=== PATIENT | male | born 1965 | race Caucasian/White ===

== ENCOUNTER 2016-12-30 15:46 | Emergency (ER) | payer MEDICAID, MEDICARE ==
[~2016-12-30] VITALS: Ht 182.9 cm; Wt 90.7 kg
[~2016-12-30 15:46] MED LIST: LISI-275 OR; OXYM0.0594
[2016-12-30 16:50] LABS: Basophils # (auto) 0 uL; Basophils % (auto) 0.2 % (0.0-2.0); CONDITION Y; DEFINITIVE SEE PRINTOUT; Eosinophils # (auto) 0 uL; Eosinophils % (auto) 0.4 % (0.0-7.0); Hematocrit 23.8 % (41.0-53.0); Hemoglobin 7.8 g/dL (13.5-17.5); Lymphocytes # (auto) 0.7 uL; Lymphocytes % (auto) 9.5 % (10.0-50.0); Mean Corpuscular Hemoglobin 38.2 pg (28.0-32.0); Mean Corpuscular Hgb Conc. 32.9 g/dL (32.0-36.0); Mean Platelet Volume 7.8 fL (7.4-10.4); Monocytes # (auto) 0.6 uL; Monocytes % (auto) 8.8 % (0.0-12.0); Neutrophils # (auto) 5.7 uL; Neutrophils % (auto) 81.1 % (37.0-80.0); Platelet Count (auto) 159 10^3/uL (140-450); Red Cell Distribution Width 18.9 % (11.6-16.0)
[2016-12-30 17:02] LABS: Albumin 2.8 g/dL (3.4-5.0); Anion Gap 12 (5-15); Calcium 8.3 mg/dL (8.5-10.1); Carbon Dioxide 23 mmol/L (21-32); Chloride 101 mmol/L (98-107); Glucose 134 mg/dL (74-106); Magnesium 1.7 mg/dL (1.6-2.6); Potassium 3.2 mmol/L (3.5-5.1); Sodium 136 mmol/L (136-145)
[2016-12-30 17:05] LABS: INR 1.1 (0.9-1.15); Partial Thromboplastin Time 30.1 sec (22.64-33.71)
[2016-12-30 17:06] LABS: Alkaline Phosphatase 158 U/L (45-117); Aspartate Aminotransferase 35 U/L (15-37); BUN/Creatinine Ratio 24.7; Blood Urea Nitrogen 24 mg/dL (7-18); GFR African American 104 mL/min; GFR Non-African American 86 mL/min; Total Protein 6.7 g/dL (6.4-8.2)
[2016-12-30 17:10] LABS: Macrocytosis Marked
[2016-12-30 17:11] LABS: Polychromasia Slight; Stomatocytes Moderate
[2016-12-30 17:12] LABS: Giant Platelets Few; Platelet Estimate Adequate
[2016-12-30] MEDS ORDERED: SODIUM CHLORIDE 0.9% 1,000 ML IV ONE (17:15)
[2016-12-30] MEDS ORDERED: POTASSIUM CHL 10% (20 MEQ/15ML) ORAL SOLN PO ONE (18:30)
[2016-12-30 19:00] VITALS: BP 114/75
== END 2016-12-30 19:11 | disposition home or self-care (01) ==
LOC: ER 15:50
DX: D68.0 Von Willebrand disease (principal); D64.9 Anemia, unspecified; E87.6 Hypokalemia; E44.1 Mild protein-calorie malnutrition; Z68.27 Body mass index [BMI] 27.0-27.9, adult; R04.0 Epistaxis; K21.9 Gastro-esophageal reflux disease without esophagitis; I10 Essential (primary) hypertension; Z79.899 Other long term (current) drug therapy; R42 Dizziness and giddiness
CPT/HCPCS: 36415; 80053; 83735; 84484; 85025; 85610; 85730; 86850; 86900; 86901; 93005; 96360

== ENCOUNTER 2017-01-04 20:36 | Inpatient (IN) | payer MEDICARE ==
[~2017-01-04] VITALS: Ht 182.9 cm; Wt 90.1 kg
[2017-01-04 21:24] LABS: Basophils # (auto) 0 uL; Basophils % (auto) 0.1 % (0.0-2.0); CONDITION Y; DEFINITIVE SEE PRINTOUT; Eosinophils # (auto) 0 uL; Eosinophils % (auto) 0.2 % (0.0-7.0); Hematocrit 12.4 % (41.0-53.0); Lymphocytes # (auto) 0.6 uL; Lymphocytes % (auto) 7.9 % (10.0-50.0); Mean Corpuscular Hemoglobin 37.3 pg (28.0-32.0); Mean Corpuscular Hgb Conc. 34.7 g/dL (32.0-36.0); Mean Corpuscular Volume 107.4 fL (80.0-100.0); Mean Platelet Volume 8.1 fL (7.4-10.4); Monocytes # (auto) 1.1 uL; Monocytes % (auto) 14.5 % (0.0-12.0); Neutrophils # (auto) 5.7 uL; Neutrophils % (auto) 77.3 % (37.0-80.0); Platelet Count (auto) 243 10^3/uL (140-450); Red Cell Distribution Width 18.7 % (11.6-16.0); White Blood Cell 7.4 10^3/uL (4.4-10.8)
[2017-01-04 21:27] LABS: Albumin 2.2 g/dL (3.4-5.0); BUN/Creatinine Ratio 32.8; Bilirubin, Total 0.5 mg/dL (0.2-1.0); Calcium 7.4 mg/dL (8.5-10.1); Potassium 3.7 mmol/L (3.5-5.1); Total Protein 5.1 g/dL (6.4-8.2)
[2017-01-04 21:29] LABS: Hemoglobin 4.3 g/dL (13.5-17.5)
[2017-01-04] MEDS ORDERED: SODIUM CHLORIDE 0.9% 1,000 ML IV ONE (21:30)
[2017-01-04 22:13] LABS: Giant Platelets Few; Platelet Estimate Adequate; Polychromasia Moderate; Tear Drop Cells FEW
[2017-01-04 22:14] LABS: Macrocytosis Moderate; Stomatocytes Few
[2017-01-04 23:00] VITALS: BP 109/64
[2017-01-04 23:17] VITALS: BP 112/54
[2017-01-04 23:47] VITALS: BP 105/56
[2017-01-05] VITALS (26 sets, daily range): BP systolic 104–135; BP diastolic 52–77
[2017-01-05 01:52] LABS: Allen Test Yes; Base Excess 0.2 mmol/L (-2.0-2.0); Blood COHb 0.7 % (0.5-1.5); Blood MetHb 0.3 % (0.0-1.5); HCO3 22.6 mmol/L (22-26.0); MODE ROOM AIR; PCO2 27.3 mmHg (35.0-45.0); PCO2(T) 27.3 mmHg (35.0-45.0); PO2 100.5 mmHg (80.0-100.0); PO2(T) 100.5 mmHg (80.0-100.0); Sample Type Arterial; pH 7.535 (7.350-7.450)
[2017-01-05] MEDS ORDERED: ACETAMINOPHEN 325 MG TAB PO ONE (02:15)
[2017-01-05] MEDS ORDERED: cefTRIAXone 1GM/50ML D5W 50 ML IV ONE (05:00)
[2017-01-05] MEDS ORDERED: ONDANSETRON HCL 4 MG/2 ML VIAL IV PRN (06:00)
[2017-01-05] MEDS ORDERED: NITROGLYCERIN 0.4 MG SL TAB SL PRN (06:00)
[2017-01-05] MEDS ORDERED: MORPHINE SULFATE 4 MG/ML SYRG IV PRN (06:00)
[2017-01-05] MEDS: SODIUM CHLORIDE 0.9% 1,000 ML IV SCH ×2 (06:26→20:34)
[2017-01-05] MEDS: PANTOPRAZOLE SODIUM 40 MG/10 ML VIAL IV SCH ×3 (06:27→21:47)
[2017-01-05] MEDS ORDERED: cefTRIAXone 1GM/50ML D5W 50 ML IV SCH (09:00)
[2017-01-05] MEDS ORDERED: LISINOPRIL 20 MG TAB PO SCH (10:00)
[2017-01-05] MEDS: NIFEdipine ER 30 MG TAB PO SCH (10:00)
[2017-01-05] MEDS ORDERED: OME20T PO (10:28)
[2017-01-05] MEDS ORDERED: FLUMAZENIL 0.1 MG/ML INJ 10ML MDV IV ONE (11:16)
[2017-01-05] MEDS ORDERED: LIDOCAINE VISCOUS 2% 15ML UD ONE (11:16)
[2017-01-05] MEDS ORDERED: diphenhdrAMINE HCL 50 MG/1 ML VL ONE (11:16)
[2017-01-05] MEDS ORDERED: NALOXONE HCL 0.4 MG/ML VIAL ONE (11:16)
[2017-01-05] MEDS ORDERED: SODIUM CHLORIDE LOCK 10 ML ONE (11:16)
[2017-01-05 11:35] LABS: Hematocrit 20.1 % (41.0-53.0)
[2017-01-05 11:37] LABS: Hemoglobin 6.7 g/dL (13.5-17.5)
[2017-01-05 11:51] LABS: INR 1.16 (0.9-1.15)
[2017-01-05 11:58] LABS: Prothrombin Time 12.7 sec (9.37-12.3)
[2017-01-05] MEDS: fentaNYL CITRATE 100 MCG/2 ML VL ONE ×2 (13:08→13:11)
[2017-01-05] MEDS: MIDAZOLAM HCL 5 MG/ML-1ML VIAL ONE ×2 (13:08→13:11)
[2017-01-05 19:20] LABS: Hematocrit 23.5 % (41.0-53.0); Hemoglobin 7.9 g/dL (13.5-17.5)
[2017-01-06 05:00] VITALS: BP 138/85
[2017-01-06 05:19] LABS: Basophils # (auto) 0 uL; Basophils % (auto) 0.2 % (0.0-2.0); CONDITION Y; DEFINITIVE SEE PRINTOUT; Eosinophils # (auto) 0 uL; Eosinophils % (auto) 0.3 % (0.0-7.0); Hematocrit 25.9 % (41.0-53.0); Hemoglobin 8.6 g/dL (13.5-17.5); Lymphocytes # (auto) 1.2 uL; Lymphocytes % (auto) 13.1 % (10.0-50.0); Mean Corpuscular Volume 96.8 fL (80.0-100.0); Mean Platelet Volume 8.3 fL (7.4-10.4); Monocytes % (auto) 10.9 % (0.0-12.0); Neutrophils # (auto) 6.6 uL; Neutrophils % (auto) 75.5 % (37.0-80.0); Platelet Count (auto) 275 10^3/uL (140-450); White Blood Cell 8.8 10^3/uL (4.4-10.8)
[2017-01-06 05:21] LABS: Red Cell Distribution Width 21.2 % (11.6-16.0)
[2017-01-06 05:37] LABS: Albumin 2.5 g/dL (3.4-5.0); BUN/Creatinine Ratio 21.2; Bilirubin, Total 1.1 mg/dL (0.2-1.0); Calcium 7.7 mg/dL (8.5-10.1); Potassium 3.4 mmol/L (3.5-5.1); Total Protein 5.7 g/dL (6.4-8.2)
[2017-01-06 06:18] LABS: Anisocytosis Slight; Ovalocytes FEW; Platelet Estimate Adequate; Polychromasia Slight
[2017-01-06 09:00] VITALS: BP 126/70
[2017-01-06] MEDS ORDERED: LISINOPRIL 20 MG TAB PO SCH (10:00)
[2017-01-06] MEDS: NIFEdipine ER 30 MG TAB PO SCH (12:05)
[2017-01-06] MEDS: PANTOPRAZOLE SODIUM 40 MG/10 ML VIAL IV SCH (12:07)
[2017-01-06] MEDS: SODIUM CHLORIDE 0.9% 1,000 ML IV SCH (12:07)
[2017-01-06 13:00] VITALS: BP 128/70
[2017-01-06] MEDS ORDERED: PANT40TA2 PO (16:27)
[2017-01-06 17:00] VITALS: BP 92/58
[2017-01-06 17:29] VITALS: BP 126/70
== END 2017-01-06 18:25 | disposition home or self-care (01) | DRG 377 ==
LOC: ER 20:41 → TELE 20:42 → TELE-WESTW 01-05 08:14 → TELE-E-ADS 01-05 08:33 → TELE-WESTW 01-05 11:00
PROVIDERS: ADMIT Nurse Practitioner; ATTEND Internal Medicine
PROC: 30233N1 Transfusion of Nonautologous Red Blood Cells into Peripheral Vein, Percutaneous Approach (ICD-10-PCS; 2017-01-04)
PROC: 30233N1 Transfusion of Nonautologous Red Blood Cells into Peripheral Vein, Percutaneous Approach (ICD-10-PCS; 2017-01-05)
PROC: 0W3P8ZZ Control Bleeding in Gastrointestinal Tract, Via Natural or Artificial Opening Endoscopic (ICD-10-PCS; principal; 2017-01-05 13:04)
DX: K31.82 Dieulafoy lesion (hemorrhagic) of stomach and duodenum (principal); E43 Unspecified severe protein-calorie malnutrition; D68.0 Von Willebrand disease; D50.0 Iron deficiency anemia secondary to blood loss (chronic); D75.89 Other specified diseases of blood and blood-forming organs; I10 Essential (primary) hypertension; K21.9 Gastro-esophageal reflux disease without esophagitis; K44.9 Diaphragmatic hernia without obstruction or gangrene; R56.9 Unspecified convulsions; Q27.33 Arteriovenous malformation of digestive system vessel; Z80.0 Family history of malignant neoplasm of digestive organs
CPT/HCPCS: 36415; 36430; 36600; 70450; 80053; 80061; 82270; 82805; 82962; 83036; 83605; 83735; 84484; 85014; 85018; 85025; 85610; 86850; 86900; 86901; 86920; 87040; 93005; 96361; 96365; C9113; J0696; J2250

== ENCOUNTER 2017-09-16 15:09 | Inpatient (IN) | payer MEDICARE ==
[~2017-09-16] VITALS: Ht 182.9 cm; Wt 83.9 kg
[~2017-09-16 15:09] MED LIST changes: +PANT40TA2 PO
[2017-09-16 16:25] LABS: Basophils # (auto) 0 uL; Basophils % (auto) 0.4 % (0.0-2.0); Eosinophils # (auto) 0 uL; Eosinophils % (auto) 0.1 % (0.0-7.0); Lymphocytes % (auto) 18.4 % (10.0-50.0); Mean Corpuscular Hemoglobin 19.7 pg (28.0-32.0); Mean Corpuscular Hgb Conc. 25.4 g/dL (32.0-36.0); Mean Corpuscular Volume 77.5 fL (80.0-100.0); Monocytes # (auto) 0.8 uL; Neutrophils # (auto) 3.5 uL; Neutrophils % (auto) 66.1 % (37.0-80.0); Nucleated Red Blood Cells % 0.4 %; Red Blood Cells 2.96 10^6/uL (4.5-5.90); Red Cell Distribution Width 21.2 % (11.8-14.3); White Blood Cell 5.3 10^3/uL (4.4-10.8)
[2017-09-16 16:31] LABS: Platelet Count (auto) 94 10^3/uL (140-450)
[2017-09-16 16:32] LABS: Hemoglobin 5.8 g/dL (13.5-17.5)
[2017-09-16] MEDS ORDERED: PANTOPRAZOLE 40 MG/10 ML VIAL IV ONE (16:45)
[2017-09-16] MEDS ORDERED: SODIUM CHLORIDE 0.9% 1,000 ML IVB ONE (17:05)
[2017-09-16 17:11] LABS: INR 1.11 (0.9-1.15); Partial Thromboplastin Time 35.8 sec (22.64-33.71); Prothrombin Time 12.1 sec (9.37-12.3)
[2017-09-16 17:12] LABS: Albumin 3.1 g/dL (3.4-5.0); BUN/Creatinine Ratio 33.8; Bilirubin, Total 0.5 mg/dL (0.2-1.0); Calcium 8.2 mg/dL (8.5-10.1); Total Protein 7.1 g/dL (6.4-8.2)
[2017-09-16] MEDS ORDERED: ACETAMINOPHEN 500 MG TAB PO PRN (21:00)
[2017-09-16] MEDS ORDERED: ONDANSETRON HCL 4 MG/2 ML VIAL IV PRN (21:00)
[2017-09-16] MEDS: PANTOPRAZOLE 40 MG/10 ML VIAL IV SCH (21:38)
[2017-09-16] MEDS: HYDROcodone-ACET 5/325MG TAB PO PRN (21:38)
[2017-09-16] MEDS ORDERED: metroNIDAZOLE 500MG/100ML 100 ML IV ONE (21:45)
[2017-09-16] MEDS ORDERED: chlordiazePOXIDE HCL 25 MG CAP PO PRN (21:45)
[2017-09-16] MEDS ORDERED: cefTRIAXone 1GM/10ml IVPUSH 10 ML IV ONE (21:45)
[2017-09-16] MEDS ORDERED: THIAMINE HCL 100 MG/ML 2ML VIAL IM ONE (21:45)
[2017-09-16] MEDS ORDERED: LORazepam 2MG/ML-1ML VIAL IV PRN (21:45)
[2017-09-16 22:10] VITALS: BP 147/81
[2017-09-16 22:25] VITALS: BP 149/83
[2017-09-16 22:40] VITALS: BP 146/79
[2017-09-16] MEDS ORDERED: THIAMINE HCL 100 MG TAB ONE (22:50)
[2017-09-16 22:55] VITALS: BP 138/84
[2017-09-16] MEDS: metroNIDAZOLE 500MG/100ML 100 ML IV SCH (22:59)
[2017-09-16 23:10] VITALS: BP 119/83
[2017-09-16 23:45] VITALS: BP 128/73
[2017-09-17] VITALS (15 sets, daily range): BP systolic 119–154; BP diastolic 67–91
[2017-09-17] MEDS: metroNIDAZOLE 500MG/100ML 100 ML IV SCH (06:44)
[2017-09-17] MEDS: HYDROcodone-ACET 5/325MG TAB PO PRN (06:51)
[2017-09-17] MEDS ORDERED: NITROGLYCERIN 0.4 MG SL TAB SL PRN (07:30)
[2017-09-17] MEDS ORDERED: MORPHINE SULFATE 4 MG/ML SYR/VIAL IV PRN (07:30)
[2017-09-17 08:21] LABS: Basophils # (auto) 0 uL; Basophils % (auto) 0.4 % (0.0-2.0); Eosinophils # (auto) 0 uL; Eosinophils % (auto) 0.3 % (0.0-7.0); Hemoglobin 8.5 g/dL (13.5-17.5); Lymphocytes # (auto) 0.7 uL; Monocytes # (auto) 0.4 uL; Neutrophils # (auto) 1.7 uL; White Blood Cell 2.8 10^3/uL (4.4-10.8)
[2017-09-17 08:23] LABS: Hematocrit 27.3 % (41.0-53.0); Lymphocytes % (auto) 24.2 % (10.0-50.0); Mean Corpuscular Hemoglobin 24.2 pg (28.0-32.0); Mean Corpuscular Hgb Conc. 31.1 g/dL (32.0-36.0); Mean Corpuscular Volume 77.8 fL (80.0-100.0); Monocytes % (auto) 14.8 % (0.0-12.0); Neutrophils % (auto) 60.3 % (37.0-80.0); Nucleated Red Blood Cells % 0.2 %; Platelet Count (auto) 54 10^3/uL (140-450); Red Blood Cells 3.51 10^6/uL (4.5-5.90)
[2017-09-17 08:29] LABS: Red Cell Distribution Width 23.8 % (11.8-14.3)
[2017-09-17 08:35] LABS: BUN/Creatinine Ratio 29.7; Calcium 7.7 mg/dL (8.5-10.1); Potassium 3.1 mmol/L (3.5-5.1)
[2017-09-17] MEDS ORDERED: MULTIPLE VITAMIN TAB PO SCH (10:00)
[2017-09-17] MEDS ORDERED: LISINOPRIL 5 MG TAB PO SCH (10:00)
[2017-09-17] MEDS ORDERED: FOLIC ACID 1 MG TAB PO SCH (10:00)
[2017-09-17] MEDS ORDERED: THIAMINE HCL 100 MG/ML 2ML VIAL IV SCH (10:00)
[2017-09-17] MEDS: PANTOPRAZOLE 40 MG/10 ML VIAL IV SCH (10:17)
[2017-09-17] MEDS ORDERED: THIAMINE HCL 100 MG TAB ONE (12:01)
[2017-09-17] MEDS ORDERED: cefTRIAXone 1GM/10ml IVPUSH 10 ML IV SCH (22:00)
[2017-09-18] MEDS ORDERED: THIAMINE HCL 100 MG TAB PO SCH (10:00)
== END 2017-09-17 13:47 | disposition left against medical advice (07) | DRG 378 ==
LOC: ER 15:09 → OVERFLOW 15:10
PROVIDERS: ADMIT Nurse Practitioner Family; ATTEND Family Medicine
PROC: 30233N1 Transfusion of Nonautologous Red Blood Cells into Peripheral Vein, Percutaneous Approach (ICD-10-PCS; principal; 2017-09-17)
DX: K92.2 Gastrointestinal hemorrhage, unspecified (principal); D68.0 Von Willebrand disease; K74.60 Unspecified cirrhosis of liver; K52.9 Noninfective gastroenteritis and colitis, unspecified; D50.0 Iron deficiency anemia secondary to blood loss (chronic); I10 Essential (primary) hypertension; K21.9 Gastro-esophageal reflux disease without esophagitis; K44.9 Diaphragmatic hernia without obstruction or gangrene; M51.27 Other intervertebral disc displacement, lumbosacral region; R04.0 Epistaxis; E87.6 Hypokalemia; M54.9 Dorsalgia, unspecified; G89.29 Other chronic pain; Z79.899 Other long term (current) drug therapy; Z80.9 Family history of malignant neoplasm, unspecified
CPT/HCPCS: 36415; 36430; 71045; 74176; 80048; 80053; 83735; 85025; 85610; 85730; 86850; 86900; 86901; 86920; 93005; 96361; 96374; 96375; 99291; C9113; G0378; J3490

== ENCOUNTER 2019-12-11 12:12 | Inpatient (IN) | payer MEDICARE ==
[~2019-12-11] VITALS: Ht 182.9 cm; Wt 88.0 kg
[2019-12-11] VITALS (12 sets, daily range): BP systolic 138–155; BP diastolic 78–104
[2019-12-11 13:21] LABS: Basophils # (auto) 0.1 10 ^3/uL (0-0.2); Eosinophils # (auto) 0 10 ^3/uL (0-0.8); Eosinophils % (auto) 0.5 % (0.0-7.0); Hematocrit 22.6 % (41.0-53.0); Mean Corpuscular Hgb Conc. 29.4 g/dL (32.0-36.0); Monocytes # (auto) 0.8 10 ^3/uL (0-1.3); Neutrophils # (auto) 2.9 10 ^3/uL (1.6-8.6); White Blood Cell 4.7 10^3/uL (4.4-10.8)
[2019-12-11 13:22] LABS: Lymphocytes # (auto) 0.8 10 ^3/uL (0.4-5.4); Lymphocytes % (auto) 18.1 % (10.0-50.0); Mean Corpuscular Hemoglobin 22.4 pg (28.0-32.0); Mean Corpuscular Volume 76.1 fL (80.0-100.0); Monocytes % (auto) 17.2 % (0.0-12.0); Neutrophils % (auto) 62.2 % (37.0-80.0); Nucleated Red Blood Cells % 0.3 %; Platelet Count (auto) 323 10^3/uL (140-450); Red Blood Cells 2.97 10^6/uL (4.5-5.90)
[2019-12-11 13:24] LABS: Red Cell Distribution Width 24.4 % (11.8-14.3)
[2019-12-11 13:30] LABS: Hemoglobin 6.6 g/dL (13.5-17.5)
[2019-12-11 13:33] LABS: Albumin 3.2 g/dL (3.4-5.0); BUN/Creatinine Ratio 27.8; Calcium 8.1 mg/dL (8.5-10.1); INR 1.23 (0.9-1.15); Partial Thromboplastin Time 29.6 sec (23.64-32.05); Potassium 3.6 mmol/L (3.5-5.1)
[2019-12-11 13:36] LABS: Bilirubin, Total 0.3 mg/dL (0.2-1.0); Total Protein 6.6 g/dL (6.4-8.2)
[2019-12-11] MEDS ORDERED: NITROGLYCERIN 0.4 MG SL TAB SL PRN ×2 (15:45→16:45)
[2019-12-11] MEDS ORDERED: DESMOPRESSIN INJECTION 20 MCG in SODIUM CHL 0.9% 50 ML IV ONE ×2 (15:45→20:45)
[2019-12-11] MEDS ORDERED: MORPHINE SULF INJ 2 MG/ML SYRINGE 1ML IV PRN ×3 (15:45→16:45)
[2019-12-11] MEDS ORDERED: ONDANSETRON HCL 4 MG/2 ML VIAL IV PRN (16:45)
[2019-12-11] MEDS ORDERED: ALUM & MAG HYDROX-SIMETH LIQ(MAALOX) 30 ML PO PRN (16:45)
[2019-12-11] MEDS ORDERED: DOCUSATE SOD 100 MG CAP PO PRN (16:45)
[2019-12-11] MEDS ORDERED: FUROSEMIDE 40 MG/4 ML VIAL IV ONE (16:45)
[2019-12-11] MEDS ORDERED: LORazepam 0.5 MG TAB PO PRN (16:45)
[2019-12-11] MEDS: HYDROcodone-ACET 5/325MG TAB PO PRN ×2 (18:34→23:20)
--- NOTE | 2019-12-11 19:30 | NUR ---
Opening Shift Note Assumed care of patient, awake and alert x4. Patient denies pain or shortness of breath at this time. No sign/symptoms of distress noted or verbalized at this time. Patient is currently running 2 unit of red blood cells. Instructed on plan of care and encouraged patient to call for assistance, patient verbalized understanding. Bed is locked in lowest position, side rails x2 are up, and call light is within reach.
[2019-12-11] MEDS ORDERED: PHYT100T PO (20:31)
[2019-12-11] MEDS ORDERED: FERR27TA2 PO (20:31)
--- NOTE | 2019-12-11 21:05 | NUR ---
Cryoprecipitate Transfusion Incomplete Prior to beginning transfusion, ludwin RN and Amber VAZQUEZ manually verified/checked that all numbers on cryoprecipitate bag matched those on the patient identification band and blood band. At 20:50 this RN began running cryoprecipitate (total volume: 100ml) at 40mls/hr and stopped the infusion at 21:05 due to the cryoprecipitate reaching the expiration time. Cryoprecipitate transfusion was not completed. Vital signs after stopping the transfusion were the following: BP: 142/92, HR: 92, RR: 18, TEMP: 98.3, and SPO2: 97% on room air. Lungs after stopping the transfusion were clear upon auscultation. Patient denies shortness of breath, itchiness, chills, or back pain at this time. Patient is laying in bed with even and unlabored respirations. No sign/symptoms of distress noted or verbalized at this time. home performance laborer notified. Addendum: 12/12/19 at 0454 by ART ARMAS RN RN Cryoprecipitate bag sent back to blood bank.
--- NOTE | 2019-12-11 21:24 | NUR ---
Spoke with Blood [facility] Re: Cryoprecipitate Order Spoke with Pily from blood bank regarding new cryoprecipitate order. Per Pily order for [facility] and she does not know when product will arrive or become available.
[2019-12-11] MEDS: FUROSEMIDE 20 MG/2 ML VIAL IV SCH (21:53)
[2019-12-11] MEDS: SODIUM CHLORIDE 0.9% 1,000 ML IV SCH (21:59)
--- NOTE | 2019-12-11 22:10 | NUR ---
Hospitalist Paged Re: Sleeping Pill Hospitalist paged regarding sleeping pill. Patient requesting sleeping medication. Awaiting call back.
[2019-12-11] MEDS ORDERED: TEMAZEPAM 15 MG CAP PO ONE (22:30)
--- NOTE | 2019-12-11 23:40 | NUR ---
Spoke with blood bank re: update on cryoprecipitate Spoke with Armond from blood bank regarding update on when cryoprecipitate would be ready. Per Armond [facility] but they have not heard anything from. Per Armond, blood bank will call this RN to notify her when cryoprecipitate is ready.
[2019-12-12] VITALS (9 sets, daily range): BP systolic 134–147; BP diastolic 70–89
[2019-12-12] MEDS ORDERED: hydrALAZINE HCL 20 MG/ML VL IV PRN (00:45)
--- NOTE | 2019-12-12 03:04 | NUR ---
Rounds Patient is laying in bed with even and unlabored respirations. Nasal packing was noted at the bedside. This RN asked patient if he removed the nasal packing himself and patient reported he removed the nasal packing 15 minutes prior to this RN entering room. Patient reported that he deflated the balloon himself and pulled it out. Tip of nasal packing is intact. No nasal bleeding noted at this time.
--- NOTE | 2019-12-12 03:15 | NUR ---
Spoke with Hospitalist Re: FFP Notified VENUS Romero that this RN noticed that Dr. Ramos wrote in his notes that his plan for this patient included patient receiving two units of FFP but Dr. Alcaraz only placed one order for one unit of FFP. This RN asked VENUS Romero if it was okay for this RN to place order for second unit of FFP. No orders received for FFP. Orders received from VENUS Romero for CBC and CMP STAT. Order received and verified. Will carry out order as received. Patient is no longer bleeding from his nose and has received 2 units of RBC and 1 unit of FFP which VENUS Romero was also made aware of.
[2019-12-12 03:58] LABS: Basophils # (auto) 0 10 ^3/uL (0-0.2); Eosinophils # (auto) 0 10 ^3/uL (0-0.8); Hematocrit 24.1 % (41.0-53.0); Hemoglobin 7.5 g/dL (13.5-17.5); Lymphocytes # (auto) 0.7 10 ^3/uL (0.4-5.4); Monocytes # (auto) 0.5 10 ^3/uL (0-1.3)
[2019-12-12 04:01] LABS: Basophils % (auto) 0.8 % (0.0-2.0); Eosinophils % (auto) 0.5 % (0.0-7.0); Lymphocytes % (auto) 18.7 % (10.0-50.0); Mean Corpuscular Hemoglobin 24.8 pg (28.0-32.0); Mean Corpuscular Hgb Conc. 31.3 g/dL (32.0-36.0); Mean Corpuscular Volume 79.1 fL (80.0-100.0); Monocytes % (auto) 12.4 % (0.0-12.0); Neutrophils # (auto) 2.7 10 ^3/uL (1.6-8.6); Neutrophils % (auto) 67.6 % (37.0-80.0); Nucleated Red Blood Cells % 0.2 %; Platelet Count (auto) 205 10^3/uL (140-450); Red Blood Cells 3.04 10^6/uL (4.5-5.90)
[2019-12-12 04:05] LABS: Red Cell Distribution Width 24.4 % (11.8-14.3)
[2019-12-12 04:17] LABS: INR 1.22 (0.9-1.15)
[2019-12-12 04:20] LABS: Albumin 3.1 g/dL (3.4-5.0); Calcium 7.5 mg/dL (8.5-10.1); Magnesium 1.8 mg/dL (1.6-2.6); Potassium 3.2 mmol/L (3.5-5.1)
[2019-12-12 04:23] LABS: BUN/Creatinine Ratio 25.3; Bilirubin, Total 0.8 mg/dL (0.2-1.0); Total Protein 6.3 g/dL (6.4-8.2)
[2019-12-12] MEDS: FUROSEMIDE 20 MG/2 ML VIAL IV SCH ×2 (06:00→17:39)
--- NOTE | 2019-12-12 07:29 | NUR ---
Opening Shift Note Assumed care of patient, awake and alert. No S/S of distress/SOB or pain. Instructed on POC and to call for assist PRN, will continue to monitor for changes Q1hr and PRN. Bed is set in lowest locked position with side rails up x 2 for safety and call light is within reach.
[2019-12-12] MEDS: SODIUM CHLORIDE 0.9% 1,000 ML IV SCH ×4 (07:31→18:10)
--- NOTE | 2019-12-12 07:31 | NUR ---
Closing Shift Note Endorsed patient care to Anika VAZQUEZ. Patient laying in bed with even and unlabored respirations. No sign/symptoms of distress noted at this time. No nose bleed at this time.
[2019-12-12] MEDS: FERROUS SULFATE 325 MG TAB PO SCH ×3 (08:00→17:39)
[2019-12-12] MEDS ORDERED: POTASSIUM CHL 20 Meq TABLET PO ONE (09:00)
[2019-12-12] MEDS ORDERED: LORATADINE 10 MG TAB PO SCH (10:00)
[2019-12-12] MEDS ORDERED: PHYTONADIONE(VitK) ORAL Susp 10mg/10ml(1mg/ml) PO SCH (10:00)
[2019-12-12] MEDS ORDERED: LISINOPRIL 10 MG TAB PO SCH (10:00)
[2019-12-12] MEDS ORDERED: FAMOTIDINE (10MG/ML) 2ML VL IV SCH (10:00)
[2019-12-12] MEDS ORDERED: METOPROLOL TARTRATE 25 MG TAB PO SCH (10:00)
[2019-12-12] MEDS: HYDROcodone-ACET 5/325MG TAB PO PRN (13:42)
[2019-12-12] MEDS ORDERED: IOHEXOL 300 MG/ML 100ML BOTTLE IJ ONE (14:13)
--- NOTE | 2019-12-12 15:05 | NUR ---
MD Farley at bedside for hematology consultation MD aware of incomplete infusion of cryoprecipitate. No new orders received at this time.
--- NOTE | 2019-12-12 16:50 | NUR ---
Paged MD Hurtado To make aware that patient states "I would like to go home, I feel better and do not want to be in the hospital any longer". Awaiting call back at this time.
--- NOTE | 2019-12-12 18:00 | NUR ---
Spoke to MD Genesis VALVERDE states patient is clear to be discharged home. Will proceed to carry out orders, once received.
--- NOTE | 2019-12-12 18:55 | NUR ---
Care endorsed to NOC RN.
--- NOTE | 2019-12-12 19:00 | NUR ---
Opening Shift Note Assumed care of patient, awake and alert x4. Patient denies pain, shortness of breath, or dizziness at this time. No sign/symptoms of distress noted or verbalized at this time. Instructed on plan of care and to call for assistance as needed, patient verbalized understanding. Bed is locked in lowest position, side rails x 2 are up, call light is within reach.
--- NOTE | 2019-12-12 19:25 | NUR ---
Discharge Discharge instructions given as ordered. Encourage to follow up with primary care provider as instructed. All questions and concerns addressed. Patient verbalized understanding. IV removed with catheter intact, pressure dressing applied. Telemetry unit returned to ICU. Patient taken downstairs to main lobby via wheelchair with all personal belongings, accompanied by this RN. No distress noted at time of departure.
== END 2019-12-12 19:25 | disposition home or self-care (01) | DRG 812 ==
LOC: ER 12:12 → TELE 12:13 → TELE-EAST 16:53
PROVIDERS: ADMIT Hospitalist; ATTEND Internal Medicine Nephrology
PROC: 30230N1 Transfusion of Nonautologous Red Blood Cells into Peripheral Vein, Open Approach (ICD-10-PCS; principal; 2019-12-11)
PROC: 2Y41X5Z Packing of Nasal Region using Packing Material (ICD-10-PCS; 2019-12-11)
PROC: 30233M1 Transfusion of Nonautologous Plasma Cryoprecipitate into Peripheral Vein, Percutaneous Approach (ICD-10-PCS; 2019-12-11)
PROC: 30233K1 Transfusion of Nonautologous Frozen Plasma into Peripheral Vein, Percutaneous Approach (ICD-10-PCS; 2019-12-12)
DX: D62 Acute posthemorrhagic anemia (principal); D68.0 Von Willebrand disease; R04.0 Epistaxis; I10 Essential (primary) hypertension; G89.29 Other chronic pain; K21.9 Gastro-esophageal reflux disease without esophagitis; M54.9 Dorsalgia, unspecified; R55 Syncope and collapse; Z79.899 Other long term (current) drug therapy; Z80.0 Family history of malignant neoplasm of digestive organs; Z82.49 Family history of ischemic heart disease and other diseases of the circulatory system
CPT/HCPCS: 30901; 36415; 71045; 80053; 83735; 84100; 85025; 85610; 85730; 86850; 86900; 86901; 86920; 87081; G0378; J3490